=== PATIENT | female | born 1990 | race Hispanic/Latino ===

== ENCOUNTER 2024-07-10 00:44 | Emergency (ER) | payer SELFPAY ==
[2024-07-10 00:45] VITALS: BP 126/85
[2024-07-10] MEDS: ZOFRAN ODT (ORALLY DISINTEGRATING) 4 MG PO (00:57)
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
[2024-07-10] MEDS: MOTRIN 600 MG PO (01:10)
== END 2024-07-10 02:04 | disposition home or self-care (01) ==
LOC: EMR 00:44
PROVIDERS: EMERGENCY PHYSICIAN Emergency Medicine
DX: S09.90XA Unspecified injury of head, initial encounter (principal); Y04.8XXA Assault by other bodily force, initial encounter
CPT/HCPCS: 99284; 70450

== ENCOUNTER 2024-09-13 17:49 | Emergency (ER) | payer SELFPAY ==
[2024-09-13 17:50] VITALS: BP 118/76
[2024-09-13 18:05] LABS: % Basophils 0.5 % (0-2); % Eosinophils 4.9 % (0-6); % Immature Granulocytes 0.3 % (0-0.5); % Lymphocytes 27.1 % (20.5-51.1); % Monocytes 6.4 % (1.7-9.3); % Neutrophils 60.8 % (42.2-75.2); Absolute Eosinophils 0.4 10^3/uL (0-0.7); Absolute Lymphocytes 2.1 10^3/uL (1.2-3.4); Absolute Monocytes 0.5 10^3/uL (0.1-0.6); Absolute Neutrophils 4.7 10^3/uL (1.4-6.5); Hematocrit 36.7 % (37.0-47.0); Hemoglobin 12.9 g/dL (12.0-16.0); Mean Corp Hgb Conc. 35.1 g/dL (33.0-37.0); Mean Corpuscular Hgb 31.6 pg (27.0-31.0); Nucleated Red Blood Cells % 0 %; Platelet Count 251 10^3/uL (130-400); Red Blood Cell Count 4.08 10^6/uL (4.20-5.40); Red Cell Dist. Width 12.3 % (11.5-14.5); White Blood Cell Count 7.7 10^3/uL (4.8-10.8)
[2024-09-13 18:16] LABS: HCG, Serum Qualitative Screen Negative
[2024-09-13 18:27] LABS: ALT (SGPT) 23 U/L (0-35); AST (SGOT) 22 U/L (14-36); Albumin 4.4 g/dl (3.5-5.0); Alkaline Phosphatase 63 U/L (38-126); Blood Urea Nitrogen 17 mg/dl (7-17); Calcium 9.3 mg/dl (8.4-10.2); Carbon Dioxide 23 mmol/L (22-30); Chloride 105 mmol/L (98-107); Glucose 111 mg/dl (70-99); Potassium 3.9 mmol/L (3.5-5.1); Sodium 138 mmol/L (135-145); Total Bilirubin 0.4 mg/dl (0.2-1.3); Total Protein 7.5 g/dl (6.3-8.2); eGFR > 60.00
--- NOTE | 2024-09-13 19:37 | ED.GENMED ---
History of Present Illness
General
Chief Complaint: Flank Pain
Source: patient
Time Seen by Provider: 09/13/24 19:21
History of Present Illness
History of Present Illness:
34-year-old otherwise healthy female presents complaining of right flank pain that radiates down the leg slightly. She states she had similar symptoms about a year ago and was hospitalized for kidney infection. This feels similar today. This has
been going on for 2 days. No associated nausea or fever currently. No vomiting. She also complains of an itchy rash that she gets on her face that comes and goes over the past year. She has tried cortisone cream without relief. She states he
gets dry and she uses Vaseline to help. No bowel or bladder dysfunction. No dysuria or hematuria. She tried Tylenol for her pain without relief
Past History
Past History
ED Past Medical History: None
ED Past Surgical History: None
Social History
Tobacco: Non-smoker
Alcohol: None
Drug: None
Personal: Single
Living: other (with boyfriend)
Phy Exam
Physical Exam
Physical Exam:
General: Well-appearing female no acute respiratory distress
HEENT: Normocephalic atraumatic
Heart: Regular rate and rhythm no murmurs
Lungs: Clear no wheeze
Abdomen soft nontender nondistended no guarding rebound normal bowel
Musculoskeletal exam: There is tenderness over the right costovertebral angle. Good range of motion right leg negative straight leg raise right leg
Extremities: No cyanosis or edema
Course
Orders/Labs/Results
Orders:
Orders
09/13/24 17:53
Test Result ONCE
09/13/24 18:00
Complete Blood Count/With Diff Urgent
Comprehensive Metabolic Panel Urgent
HCG, Serum Qualitative Screen Urgent
09/13/24 19:36
Ketorolac [Toradol] 15 mg IV NOW STA
09/13/24 19:37
CT Abd/pel Without Iv Or Oral Urgent
Comment:
Reason For Exam: right flank pain
09/13/24 20:05
Urinalysis Reflex To Culture Urgent
Date Specimen was Collected: 09/13/24
Time Specimen was Collected: 19:40
Urine Microscopic Reflex Cult Urgent
Abnormal Lab Results
09/13/24 09/13/24
18:00 20:05
RBC 4.08 L 10^6/uL
(4.20-5.40)
Hct 36.7 L %
(37.0-47.0)
MCH 31.6 H pg
(27.0-31.0)
Glucose 111 H mg/dl
(70-99)
Ur Occult Blood Reflex 2+ A
(Negative)
Urine Bacteria (Reflex) Few A
(Negative)
09/13/24 18:00
09/13/24 18:00
Vital Signs
Initial and Last Documented VS:
Initial Vital Signs
Temp Pulse Resp BP Pulse Ox
97.9 F 73 16 118/76 100
09/13/24 17:50 09/13/24 17:50 09/13/24 17:50 09/13/24 17:50 09/13/24 17:50
Last Documented Vital Signs
Temp Pulse Resp BP Pulse Ox
97.9 F 77 18 121/73 99
09/13/24 17:50 09/13/24 19:45 09/13/24 19:45 09/13/24 19:45 09/13/24 19:45
MDM/Problems Addressed
Differential Diagnosis Includes:
Patient with right flank pain that radiates to the front and down the leg. Consider renal colic versus pyelonephritis versus radiculopathy. Will check urine and labs. CT without contrast pending.
Patient also notes dry itchy face intermittent over the past year. Does not look like cellulitis. Question possible underlying eczema.
*Critical Care Note
Total Time (30-74mins, 75-104mins- exclusive of procedures): Not Applicable
Update Note
Update Note:
No sign of infection on urinalysis today. CT within normal limits. Labs reviewed without finding. I suspect musculoskeletal flank pain versus possible radiculopathy given the pain radiating to the knee. Will recommend Tylenol and ibuprofen for
pain. Will also prescribe prednisone. Stable for discharge
ED Attending Note
-
Portions of this chart may have been created with voice recognition software.� Occasional wrong word or��sound alike� substitutions may have occurred due to the inherent limitations of voice recognition software.
Discharge Plan
Departure
Patient Disposition: Home (Routine Discharge)
Date of Disposition: 09/13/24
Time of Disposition: 22:05
Patient with high blood pressure during this ER visit?: No
Discharge Problem:
Acute flank pain
Instructions: Radiculopathy (DC)
Prescriptions:
New
prednisone 10 mg Tablet
See Rx Instructions .ROUTE .COMPLEX Qty: 30 0RF
Rx Instructions:
Take By Mouth:
40 mg daily x3 days, 30 mg daily x3 days,
20 mg daily x3 days, 10 mg daily x3 days.
No Action
cetirizine 10 MG tablet
10 mg PO DAILY 0RF
ferrous sulfate [FeroSul] 325 MG tablet
325 mg PO BID 0RF
cholecalciferol (vitamin D3) 2,000 UNITS tablet
2,000 units PO DAILY 0RF
Vitamin C:
500 mg PO BID
ibuprofen 600 MG tablet
600 mg PO Q6 Qty: 20 0RF
albuterol sulfate 90 mcg/actuation HFA aerosol inhaler
2 puff inhalation Q6H PRN (Reason: shortness of breath or wheezing) Qty: 6.7 0RF
dexamethasone 4 mg tablet
8 mg PO ONCE Qty: 2 0RF
Rx Instructions:
on 02/19
Referrals:
NONE,* [Family Provider] -
Activity Restrictions/Additional Instructions:
Use Tylenol or ibuprofen for pain. Use prednisone as directed. Return if worse otherwise follow-up your doctor
Interventions
Interventions:
*Risk Screen - Suicide Last Done: 09/13/24 17:50
*Neglect/Abuse Screening Last Done: 09/13/24 17:50
LJ-Nbwmec-Lxxmvvagma Assessment Last Done: 09/13/24 19:23
ED-Female Genitourinary Assessment Last Done: 09/13/24 19:23
Discharge Date and Time
Print Language: TUVALUAN
[2024-09-13 19:44] VITALS: BMI 20.1
[2024-09-13 19:45] VITALS: BP 121/73
[2024-09-13] MEDS: TORADOL 15 MG IV (19:45)
[2024-09-13 20:13] LABS: Urine Albumin Negative (Neg - Trace); Urine Bilirubin Negative (Negative); Urine Character Clear (Clear); Urine Color Yellow; Urine Glucose Negative (Negative); Urine Ketone Negative (Negative); Urine Leukocyte Negative (Negative); Urine Nitrite Negative (Negative); Urine Occult Blood 2+ (Negative); Urine Specific Gravity 1.015 (<1.030); Urine Urobilinogen Negative (Neg - 1+); Urine pH 6.5 (5.0-9.0)
[2024-09-13 20:32] LABS: Urine Red Blood Cell 0-2 /HPF (0-2)
[2024-09-13 20:33] LABS: Urine Bacteria Few (Negative)
[2024-09-13 20:47] VITALS: BP 89/33
[2024-09-13 21:00] VITALS: BP 88/28
[2024-09-13 21:57] VITALS: BP 98/65
== END 2024-09-13 22:24 | disposition home or self-care (01) ==
LOC: EMR 17:49
PROVIDERS: Emergency Medicine; Physician Assistant; EMERGENCY PHYSICIAN Emergency Medicine
DX: R10.9 Unspecified abdominal pain (principal); R21 Rash and other nonspecific skin eruption
CPT/HCPCS: 96374; 99284; 74176; 80053; 81003; 81015; 84703; 85025

== ENCOUNTER 2025-05-25 17:55 | Emergency (ER) | payer SELFPAY ==
[2025-05-25 17:59] VITALS: BP 106/73
[2025-05-25 18:22] LABS: Urine Character Clear (Clear)
[2025-05-25 18:23] LABS: Hematocrit 37.9 % (37.0-47.0); Hemoglobin 13.3 g/dL (12.0-16.0); Mean Corp Hgb Conc. 35.1 g/dL (33.0-37.0); Mean Corpuscular Volume 87.1 fL (81.0-99.0); Nucleated Red Blood Cells % 0 %; Platelet Count 269 10^3/uL (130-400); Red Cell Dist. Width 11.7 % (11.5-14.5)
[2025-05-25 18:27] LABS: Urine Squamous Cell >30 /LPF (Few)
[2025-05-25 18:29] LABS: Urine White Cell 0-2 /HPF (0-5)
[2025-05-25 18:46] LABS: HCG, Serum Qualitative Screen Negative
[2025-05-25 18:50] LABS: ALT (SGPT) 19 U/L (0-35); AST (SGOT) 19 U/L (14-36); Albumin 4.3 g/dl (3.5-5.0); Alkaline Phosphatase 75 U/L (38-126); Blood Urea Nitrogen 13 mg/dl (7-17); Calcium 9.7 mg/dl (8.4-10.2); Carbon Dioxide 25 mmol/L (22-30); Chloride 107 mmol/L (98-107); Glucose 120 mg/dl (70-99); Lipase 268 U/L (23-300); Potassium 4.1 mmol/L (3.5-5.1); Sodium 136 mmol/L (135-145); Total Protein 7.5 g/dl (6.3-8.2); eGFR > 60.00
[2025-05-25] MEDS: TORADOL 15 MG IV (22:10)
--- NOTE | 2025-05-25 22:41 | ED.GENMED ---
History of Present Illness
<Jaimee Argueta PA-C - Last Filed: 05/26/25 22:56>
General
Chief Complaint: Abdominal Symptoms
Source: patient
Exam Limitations: none
Time Seen by Provider: 05/25/25 21:37
Nursing documentation reviewed up to this point in time: agreed with
History of Present Illness
History of Present Illness:
Patient is a 35-year-old female who presents to the emergency department for evaluation of right upper abdominal pain for the past 8 days. Patient reports a constant sharp pain in her right upper/right mid abdomen which does somewhat radiate around
to her right flank. She also reports very little appetite over the past week. She denies any fever or chills. No nausea, vomiting, diarrhea, or constipation. No urinary complaints including dysuria or hematuria. No chest pain or shortness of
breath.
Patient denies any history of similar symptoms. No known sick contacts.
Past History
<Jaimee Argueta PA-C - Last Filed: 05/26/25 22:56>
Past History
ED Past Medical History: None
ED Past Surgical History: None
Social History
Tobacco: Non-smoker
Alcohol: None
Drug: None
Personal: Single
Living: other (with boyfriend)
Review of Systems
<Jaimee Argueta PA-C - Last Filed: 05/26/25 22:56>
Review of Systems
Allergies reviewed?: Yes
All Other Systems: ROS reviewed and negative except as documented in HPI and ROS
Phy Exam
<Jaimee Argueta PA-C - Last Filed: 05/26/25 22:56>
Physical Exam
Physical Exam:
Vitals: Patient's vital signs are stable. Afebrile
General: Patient is well appearing, no acute distress. Nontoxic
Skin: Warm and dry, no rashes or lesions
Head: Normocephalic, atraumatic
Eyes: Sclera nonicteric.
Throat: Protecting airway
Neck: Normal ROM, no cervical spine tenderness, no meningismus
Cardiac: Regular rate and rhythm, no murmurs.
Pulm: Normal respiratory effort, no wheezes, rales, rhonchi heard on exam
Abdomen: Abdomen soft. Mild tenderness in right upper quadrant and right mid abdomen. No rebound tenderness or guarding. No CVA tenderness.
Extremities: No evidence of cyanosis or edema. 2+ palpable DP pulses bilaterally
Neuro: AAOx3. Grossly intact.
Psychiatric: Normal affect.
Course
<Jaimee Argueta PA-C - Last Filed: 05/26/25 22:56>
Orders/Labs/Results
Orders:
Orders
05/25/25 18:02
Test Result ONCE
05/25/25 18:11
Complete Blood Count/With Diff Urgent
Comprehensive Metabolic Panel Urgent
HCG, Serum Qualitative Screen Urgent
Lipase Urgent
Urinalysis Reflex To Culture Urgent
Date Specimen was Collected: 05/25/25
Time Specimen was Collected: 18:02
Urine Microscopic Reflex Cult Urgent
Urine Culture Urgent
[place] Source: U
Specimen Description:
Date Specimen was Collected: 05/25/25
Time Specimen was Collected: 18:02
05/25/25 21:45
Ketorolac [Toradol] 15 mg IV NOW STA
US Abdomen Complete/Upper Urgent
Comment:
Reason For Exam: RUQ pain
05/25/25 23:02
CT Abd/pelvis W Iv Cont Urgent
Comment:
Reason For Exam: Right mid abdominal pain, anorexia
Abnormal Lab Results
05/25/25
18:11
Glucose 120 H mg/dl
(70-99)
Ur Occult Blood Reflex 3+ A
(Negative)
Leukocyte Esterase Rfl 3+ A
(Negative)
Urine RBC 3-6 A /HPF
(0-2)
Urine Bacteria (Reflex) Many A
(Negative)
05/25/25 18:11
05/25/25 18:11
Vital Signs
Initial and Last Documented VS:
Initial Vital Signs
Temp Pulse Resp BP Pulse Ox
98.4 F 82 16 106/73 99
05/25/25 17:59 05/25/25 17:59 05/25/25 17:59 05/25/25 17:59 05/25/25 17:59
Last Documented Vital Signs
Temp Pulse Resp BP Pulse Ox
98.2 F 74 18 104/57 99
05/26/25 01:43 05/26/25 01:43 05/26/25 01:43 05/26/25 01:43 05/26/25 01:43
Ald[place];Anjali Wilkerson PA-C - Last Filed: 05/26/25 01:30>
Orders/Labs/Results
Orders:
Orders
05/25/25 18:02
Test Result ONCE
05/25/25 18:11
Complete Blood Count/With Diff Urgent
Comprehensive Metabolic Panel Urgent
HCG, Serum Qualitative Screen Urgent
Lipase Urgent
Urinalysis Reflex To Culture Urgent
Date Specimen was Collected: 05/25/25
Time Specimen was Collected: 18:02
Urine Microscopic Reflex Cult Urgent
Urine Culture Urgent
[place] Source: U
Specimen Description:
Date Specimen was Collected: 05/25/25
Time Specimen was Collected: 18:02
05/25/25 21:45
Ketorolac [Toradol] 15 mg IV NOW STA
US Abdomen Complete/Upper Urgent
Comment:
Reason For Exam: RUQ pain
05/25/25 23:02
CT Abd/pelvis W Iv Cont Urgent
Comment:
Reason For Exam: Right mid abdominal pain, anorexia
Abnormal Lab Results
05/25/25
18:11
Glucose 120 H mg/dl
(70-99)
Ur Occult Blood Reflex 3+ A
(Negative)
Leukocyte Esterase Rfl 3+ A
(Negative)
Urine RBC 3-6 A /HPF
(0-2)
Urine Bacteria (Reflex) Many A
(Negative)
05/25/25 18:11
05/25/25 18:11
Vital Signs
Initial and Last Documented VS:
Initial Vital Signs
Temp Pulse Resp BP Pulse Ox
98.4 F 82 16 106/73 99
05/25/25 17:59 05/25/25 17:59 05/25/25 17:59 05/25/25 17:59 05/25/25 17:59
Last Documented Vital Signs
Temp Pulse Resp BP Pulse Ox
98.2 F 74 18 104/57 99
05/26/25 01:43 05/26/25 01:43 05/26/25 01:43 05/26/25 01:43 05/26/25 01:43
<Jaimee Argueta PA-C - Last Filed: 05/26/25 22:56>
MDM/Problems Addressed
Differential Diagnosis Includes:
Not limited to: Biliary colic, acute cholecystitis, choledocholithiasis, pancreatitis, pyelonephritis, renal colic, appendicitis, etc.
MDM/Problems Addressed:
35-year-old female presenting with 8 days of right mid abdominal pain and anorexia. No fevers, back pain, vomiting, urinary symptoms. Vitals and exam as above.
Differential broad. Based on location of pain � possible biliary colic versus cholecystitis. Other possibilities include renal colic, pyelonephritis, appendicitis, constipation, etc. Do not suspect pelvic etiology based on location of pain.
Basic labs and urine obtained prior to my evaluation without clinically significant abnormalities. Urinalysis does show a few RBCs, however no clear evidence infection, favor contamination.
Will give dose of Toradol and start with abdominal ultrasound. Will closely monitor and reassess.
Update: ultrasound without acute findings. On reassessment � patient appears well however does have some persistent pain. Shared decision-making utilized w/ patient will proceed with CT scan abdomen/pelvis to rule out acute appendicitis versus other
intra-abdominal pathology.
Case signed out to Anjali Wilkerson PA-C pending CT results.
Chronic conditions affecting care:
N/A
Acute Exacerbation and/or Progression of Chronic Illness:
N/A
<Jaimee Argueta PA-C - Last Filed: 05/26/25 22:56>
*Radiology
Radiology exam reviewed: radiology read reviewed
*Pulse Oximetry
SaO2: 99
Oxygen Mode of Delivery: Room air
Patient hypoxic: no
*EKG
Interpreted by ED Provider?: NA
*X Ray Consultant Interpretation
Rate: X Ray Consultant- N/A
*Critical Care Note
Total Time (30-74mins, 75-104mins- exclusive of procedures): Not Applicable
<Anjali Wilkerson PA-C - Last Filed: 05/26/25 01:30>
Update Note
Update Note:
Update
I received patient in sign out. Patient states that she is feeling well and her pain is minimal. Her CAT scan shows patient has no urinary symptoms, her CT scan shows no acute intra-abdominal pathology no bowel structure inflammation. Appendix is
normal. No hydronephrosis or nephrolithiasis. Moderate bladder wall thickening which may be due to distention or cystitis. Patient tells me that this pain feels similar to when she has had a kidney infection in the past. As such, will initiate
Bactrim to cover for UTI however patient does have many squamous cells noted on urinalysis could indicate contamination. Discussed follow-up with primary. Patient stable for discharge.
ED Attending Note
<Jaimee Argueta PA-C - Last Filed: 05/26/25 22:56>
-
Portions of this chart may have been created with voice recognition software.� Occasional wrong word or��sound alike� substitutions may have occurred due to the inherent limitations of voice recognition software.
Discharge Plan
Departure
Patient Disposition: Home (Routine Discharge)
Date of Disposition: 05/26/25
Time of Disposition: 01:30
Patient with high blood pressure during this ER visit?: No
Condition: Good
Discharge Problem:
Abdominal pain
Instructions: Abdominal pain in adults - ED discharge instructions
Prescriptions:
New
sulfamethoxazole-trimethoprim [Bactrim DS] 800-160 mg tablet
1 tab PO BID 7 Days Qty: 14 0RF
No Action
cetirizine 10 MG tablet
10 mg PO DAILY 0RF
ferrous sulfate [FeroSul] 325 MG tablet
325 mg PO BID 0RF
cholecalciferol (vitamin D3) 2,000 UNITS tablet
2,000 units PO DAILY 0RF
Vitamin C:
500 mg PO BID
ibuprofen 600 MG tablet
600 mg PO Q6 Qty: 20 0RF
albuterol sulfate 90 mcg/actuation HFA aerosol inhaler
2 puff inhalation Q6H PRN (Reason: shortness of breath or wheezing) Qty: 6.7 0RF
dexamethasone 4 mg tablet
8 mg PO ONCE Qty: 2 0RF
Rx Instructions:
on 02/19
prednisone 10 mg Tablet
See Rx Instructions .ROUTE .COMPLEX Qty: 30 0RF
Rx Instructions:
Take By Mouth:
40 mg daily x3 days, 30 mg daily x3 days,
20 mg daily x3 days, 10 mg daily x3 days.
Referrals:
UNKNOWN - PT DOES,NOT KNOW [Family Provider]
Activity Restrictions/Additional Instructions:
RETURN TO THE EMERGENCY DEPARTMENT WITH ANY FEVER, CHILLS, WORSENING/PERSISTENT ABDOMINAL PAIN, INTRACTABLE NAUSEA/VOMITING, SEVERE BACK PAIN, WORSENING CURRENT SYMPTOMS, OR ANY OTHER CONCERNS
- Discussed that your lab work and imaging showed no acute abnormalities. Your urine did show few RBCs. Please have a urinalysis repeated with your primary care to ensure that this resolves
- It is important stay well-hydrated. Please take Tylenol and/or Motrin as needed for pain.
- Follow-up with your primary care for further evaluation/management to ensure that your symptoms are improving
Monitor your symptoms closely and return to the emergency department with any acute worsening/new symptoms or any other concerns
Bactrim has been sent to your pharmacy. You take 1 tablet twice daily for 7 days.
Interventions
Interventions:
*Risk Screen - Suicide Last Done: 05/25/25 22:15
*General Assessment Last Done: 05/25/25 23:46
*Neglect/Abuse Screening Last Done: 05/25/25 22:15
*ED- Fall Risk Assessment Last Done: 05/25/25 23:46
*ED COVID-19 Vaccine History Last Done: 05/25/25 22:15
*Nursing Disposition Last Done: 05/26/25 01:48
ZW-Ocortl-Zsblyibvvg Assessment Last Done: 05/25/25 22:16
ED-Female Genitourinary Assessment Last Done: 05/25/25 22:16
Discharge Date and Time
Discharge Date/Time: 05/26/25 01:56
Print Language: GEORGIAN
[2025-05-26 01:43] VITALS: BP 104/57
== END 2025-05-26 01:56 | disposition home or self-care (01) ==
LOC: EMR 17:55
PROVIDERS: Student in an Organized Health Care Education/Training Program; EMERGENCY PHYSICIAN Emergency Medicine
DX: R10.11 Right upper quadrant pain (principal)
CPT/HCPCS: 99284; 96374; 74177; 76700; 80053; 81003; 81015; 83690; 84703; 85025; 87086; Q9967